=== PATIENT | male | born 1975 | race Hispanic/Latino ===

== ENCOUNTER 2017-01-01 18:11 | Emergency (ER) | payer SELFPAY ==
[2017-01-01] MEDS ORDERED: cefTRIAXone\\ROCEPHIN 500 MG VIAL ONE (18:44)
[2017-01-01] MEDS ORDERED: Lidocaine 1% 20 ML MDV ONE (18:45)
[2017-01-01] MEDS ORDERED: Azithromycin 250 MG TAB ONE ×2 (18:50)
[2017-01-03 01:29] LABS: Chlamydia by PCR Not Detected (NotDetected); GC by PCR DETECTED (NotDetected)
== END 2017-01-01 19:22 | disposition home or self-care (01) ==
LOC: NAV ERS 18:11
DX: N34.2 Other urethritis (principal); F17.210 Nicotine dependence, cigarettes, uncomplicated
CPT/HCPCS: 87491; 87591; 96372; J0696; J2001

== ENCOUNTER 2018-08-26 18:04 | Emergency (ER) | payer MEDICAID ==
[2018-08-26] MEDS ORDERED: Sulfameth/Trimethoprim DS 800-160mg TAB ONE (18:43)
== END 2018-08-26 18:50 | disposition home or self-care (01) ==
LOC: NAV ERS 18:04
DX: L03.311 Cellulitis of abdominal wall (principal); L03.116 Cellulitis of left lower limb; F17.210 Nicotine dependence, cigarettes, uncomplicated
CPT/HCPCS: 99283

== ENCOUNTER 2021-03-17 10:40 | Emergency (ER) | payer OTHER | END 2021-03-17 11:45 | disposition short-term general hospital (02) | LOC: NAV ERS 10:40 | DX: N50.89 Other specified disorders of the male genital organs (principal); F17.210 Nicotine dependence, cigarettes, uncomplicated | CPT/HCPCS: 99284 ==